=== PATIENT | female | born 1995 | race Caucasian/White ===

== ENCOUNTER 2019-06-05 20:15 | Emergency (ER) | payer SELFPAY ==
[2019-06-05] MEDS ORDERED: predniSONE TAB* 20 MG PO ONE (21:22)
[2019-06-05] MEDS ORDERED: Phenazopyridine TAB* 100 MG PO ONE (21:22)
--- NOTE | 2019-06-05 21:32 | UC ---
UC General HPI - HPI Summary HPI Summary: 23 yo female c/o progressive worse pain with urination, uti sx. Initially treated with otc azo, but no better, indeed worse. Has taken 1 day of augmentin d/t acute tonsillitis (per pcp). Still feels very bad, hurts to swallow. Subj fever, not now. Feels tired, but hard to sleep d/t general discomfort. No cvat. No acute abd pain. No sob / cough / uri sx. No rash, except vulva irritated, worse with urine. Stands up most of the day. - History of Current Complaint Chief Complaint: [facility]CGU Stated Complaint: BURNING URINATION Time Seen by Provider: 06/05/19 20:31 Hx Obtained From: Patient Hx Last Menstrual Period: implant Pain Intensity: 10 - Allergy/Home Medications Allergies/Adverse Reactions: Allergies Allergy/AdvReac Type Severity Reaction Status Date / Time No Known Allergies Allergy Verified 06/05/19 20:29 Home Medications: Home Medications Amoxicillin 875 mg PO BID 06/05/19 [History Confirmed 06/05/19] PMH/Surg Hx/FS Hx/Imm Hx Previously Healthy: Yes - Surgical History Surgical History: None - Family History Known Family History: Positive: None, Non-Contributory - Social History Alcohol Use: None Substance Use Type: None Smoking Status (MU): Never Smoked Tobacco Review of Systems All Other Systems Reviewed And Are Negative: Yes Constitutional: Positive: Other - see hpi Skin: Positive: Other Eyes: Positive: Negative ENT: Positive: Other Respiratory: Positive: Other Cardiovascular: Positive: Other Gastrointestinal: Positive: Other Genitourinary: Positive: Other Motor: Positive: Negative Neurovascular: Positive: Negative Musculoskeletal: Positive: Negative Neurological: Positive: Negative Psychological: Positive: Negative Is Patient Immunocompromised?: No Physical Exam Triage Information Reviewed: Yes Appearance: Well-Nourished - sitting up, looks tired. NAD. Vital Signs: Initial Vital Signs Temp 97.9 F 06/05/19 20:22 Pulse 100 06/05/19 20:22 Resp 16 06/05/19 20:22 BP 115/77 06/05/19 20:22 Pulse Ox 100 06/05/19 20:22 Vital Signs Reviewed: Yes Eye Exam: Normal ENT: Positive: TM dull - left TM dull, R TM ok, Tonsillar swelling, Tonsillar exudate, Uvula midline Neck exam: Other - + swollen tonsils. able to converse. without noted meningismus Respiratory Exam: Normal Cardiovascular Exam: Normal Abdominal Exam: Normal - no cvat abd soft Musculoskeletal Exam: Normal - gait steady Neurological Exam: Normal Psychological Exam: Normal - conversing easily and appropriately Skin Exam: Other - nondiaphoretic Pt report vaginitis, o/w without visible or reported rash Course/Dx - Course Course Of Treatment: Reviewed urine dip with pt. Cx sent. Tonsils quite large and inflamed. Will start short course prednisone, d/w pt. Hydrate. F/u PCP - will call Saturday for early f/u this week. To ED if worse. Questions as posed answered to the best of my ability. - Diagnoses Provider Diagnosis: Tonsillitis, Vaginitis Discharge - Sign-Out/Discharge Documenting (check all that apply): Patient Departure All imaging exams completed and their final reports reviewed: No Studies - Discharge Plan Condition: Stable Disposition: HOME Prescriptions: Phenazopyridine 200 mg (NF) [Pyridium 200 MG tab *] 200 mg PO TID PRN #12 tab PRN Reason: Pain predniSONE [Prednisone 20 MG TAB] 20 mg PO DAILY #4 tablet Patient Education Materials: Urinary Tract Infection in Women (ED), Tonsillitis (ED) Referrals: Catalino Mckenzie MD [Primary Care Provider] - Additional Instructions: You likely have Vulvitis (inflammation of the vulva). Treatment: 50/50 over the counter hydrocortisone 1% / vaginal yeast antifungal cream - apply thin layer 2x / day for 5 days Vagisil (regular strength) as needed. Urine culture has been sent. Continue amoxicillin / clauvulinic acid (augmentin ). You will be notified if antibiotic modification is needed. Re tonsillitis - continue augmentin. Short course prednisone to help with swelling. Call your doctor on Saturday to schedule recheck for early this week. Please go to the Emergency Department for worse or new problems in the meantime. Hydrate. - Billing Disposition and Condition Condition: STABLE Disposition: Home
[2019-06-05 21:46] VITALS: BP 116/78
== END 2019-06-05 21:35 | disposition home or self-care (01) ==
LOC: UCEAST 20:15
DX: J03.90 Acute tonsillitis, unspecified (principal); N76.0 Acute vaginitis
CPT/HCPCS: 81003; 84702; 87086; 99212; A9270-GY; G0463; J7512